=== PATIENT | female | born 1990 | race African-American/Black ===

== ENCOUNTER 2017-03-31 10:42 | Emergency (ER) | payer OTHER ==
[~2017-03-31] VITALS: Ht 172.7 cm; Wt 124.0 kg
[~2017-03-31 10:42] MED LIST: AMOXICILLI400 MG/5 M OR; AMOXICILLIN500 MG OR; AMOXICILLIN500 MG PO; AYGESTIN5 MG PO; BACTRIM DS1 TAB PO; BACTROBAN2 % EX; BENADRYL25 M1 OR; CLEOCIN VAG2 % VA; CLEOCIN300 MG OR; CLINDAMYCIN2 % VA; DEP0PROVERA IM; FLAGYL500 MG OR; FLAGYL500 MG PO; LORTAB5 PO; SPRINTEC 2828 DAY PO; ULTRAM50 MG OR
[2017-03-31] MEDS ORDERED: PENICILLN VK500 MG PO (11:38)
[2017-03-31 11:44] VITALS: BP 134/82
== END 2017-03-31 11:44 | disposition home or self-care (01) | DRG 153 ==
LOC: ED 10:42
DX: J02.0 Streptococcal pharyngitis (principal)

== ENCOUNTER 2017-06-08 18:12 | Emergency (ER) | payer OTHER ==
[~2017-06-08] VITALS: Ht 172.7 cm; Wt 123.0 kg
[~2017-06-08 18:12] MED LIST changes: +PENICILLN VK500 MG PO
[2017-06-08] MEDS ORDERED: ORPHENADRINE100 MG PO (18:52)
[2017-06-08] MEDS ORDERED: TRAMADOL HYDROC50 MG PO (18:52)
[2017-06-08 19:10] VITALS: BP 123/71
== END 2017-06-08 19:10 | disposition home or self-care (01) | DRG 563 ==
LOC: ED 18:12
DX: S46.912A Strain of unspecified muscle, fascia and tendon at shoulder and upper arm level, left arm, initial encounter (principal); X58.XXXA Exposure to other specified factors, initial encounter

== ENCOUNTER 2018-06-11 18:48 | Emergency (ER) | payer OTHER ==
[~2018-06-11] VITALS: Ht 172.7 cm; Wt 126.0 kg
[~2018-06-11 18:48] MED LIST changes: +ORPHENADRINE100 MG PO; +TRAMADOL HYDROC50 MG PO
[2018-06-11] MEDS ORDERED: IBUPROFEN600 MG PO (19:23)
[2018-06-11] MEDS ORDERED: ORPHENADRINE100 MG PO (19:23)
[2018-06-11 19:57] VITALS: BP 119/75
== END 2018-06-11 20:00 | disposition home or self-care (01) ==
LOC: ED 18:48
DX: S29.012A Strain of muscle and tendon of back wall of thorax, initial encounter (principal); M54.6 Pain in thoracic spine; Y93.E9 Activity, other interior property and clothing maintenance; Y92.009 Unspecified place in unspecified non-institutional (private) residence as the place of occurrence of the external cause

== ENCOUNTER → 2019-01-17 | Outpatient (REF) | payer OTHER ==
[~2019-01-17] MED LIST changes: +IBUPROFEN600 MG PO
[2019-01-17 10:35] LABS: HEMATOCRIT 43.4 % (37.0-47.0); HEMOGLOBIN 14.2 g/dl (12.0-16.0); IMMATURE GRANULOCYTES 0.2 % (0.0-5.0); MEAN CELL VOLUME 87.3 fL CALC (80.0-100.0); MEAN CORPUSCULAR HGB 28.6 pG CALC (26.0-32.0); MEAN CORPUSCULAR HGB CONC 32.7 g/L CALC (32.0-36.0); NEUT# 3.03 thou/uL (2.00-7.15); RED BLOOD COUNT 4.97 mill/uL (4.20-5.60); RED CELL DISTRI WIDTH 12.3 % (11.5-15.5)
[2019-01-17 11:41] LABS: ALBUMIN 4.5 g/dL (3.2-5.0); ALKALINE PHOSPHATASE 87 u/l (38-126); ANION GAP 16 (6-22 (CALC)); BUN 10 mg/dL (7-17); BUN/CREATININE RATIO 12 (12-20 (CALC)); CALCULATED LDLCHOLESTEROL 126 mg/dL (62-129 (CALC)); CARBON DIOXIDE 26 mmol/l (22-30); CHLORIDE 104 mmol/l (95-108); CHOLESTEROL HDL RATIO 3.8 (<4.4 (CALC)); CREATININE 0.9 mg/dL (0.5-1.0); GFR > 60 ML/MIN (>=60 (CALC)); GFR FOR AFR.AMER. > 60 ML/MIN (>=60 (CALC)); HDL CHOLESTEROL 48 mg/dL (>=40); POTASSIUM 3.7 mmol/l (3.5-5.1); SGOT/AST 25 u/l (14-36); SODIUM 141 mmol/l (137-146); TOTAL CHOLESTEROL 185 mg/dl (0-199); TOTAL PROTEIN 8.2 g/dL (6.3-8.2); TRIGLYCERIDES REFLEX TO dLDL 55 mg/dl (30-149); VLDL CHOLESTROL 11 mg/dl (2-29 (CALC))
== END | disposition home or self-care (01) ==
LOC: LAB 08:48
PROVIDERS: ATTEND Physician Assistant Medical
DX: Z13.228 Encounter for screening for other metabolic disorders (principal)

== ENCOUNTER 2020-11-13 07:25 | Emergency (ER) | payer OTHER ==
[~2020-11-13] VITALS: Ht 172.7 cm; Wt 126.0 kg
[2020-11-13 08:40] VITALS: BP 131/75
== END 2020-11-13 08:40 | disposition home or self-care (01) ==
LOC: ED 07:25
DX: Z20.822 Contact with and (suspected) exposure to COVID-19 (principal)